=== PATIENT | female | born 1995 | race Caucasian/White ===

== ENCOUNTER 2019-01-18 14:43 | Outpatient (CLI) | payer OTHER, SELFPAY ==
--- NOTE | 2019-01-18 14:31 | DI.RAD_ITS ---
SYMPTOMS/DIAGNOSIS: EVAL LT ANKLE PAIN LEFT ANKLE: When compared with the previous images of 11/10/17, there has been no interval change. Healed fractures of the distal tibia and fibula and orthopedic hardware in place.
== END 2019-01-18 15:03 ==
PROVIDERS: PCP Physician Assistant; Visit Provider Student in an Organized Health Care Education/Training Program
DX: M25.572 Pain in left ankle and joints of left foot (principal); Z87.81 Personal history of (healed) traumatic fracture
CPT/HCPCS: 73610

== ENCOUNTER 2021-10-20 13:24 | Outpatient (CLI) | payer OTHER, SELFPAY ==
--- NOTE | 2021-10-20 11:00 | DI.RAD_ITS ---
Exam(s) XR ANKLE LT COMPLETE EXAM: XR ANKLE LT COMPLETE CLINICAL HISTORY: follow up TECHNIQUE: 2D digital imaging was performed. Three views. COMPARISON: DX LEFT ANKLE COMPLETE from 10/13/2016 CR XR ANKLE LT COMPLETE from 01/18/2019 FINDINGS: BONES: No acute fracture is present. No bony destructive lesion is seen. A fixation plate is again no josue along the distal fibula. Screws of are seen in the medial malleolus. There are 2 mortise screws which are again noted to be fractured. The alignment appears unchanged. There is a mild amount of lucency around the screws in the distal fibula which appears unchanged.. Tiny calcaneal spurs. No t alar dome defect. JOINTS:The ankle mortise is normally aligned. No joint space narrowing or significant periarticular spurring. SOFT TISSUE: Normal. IMPRESSION: No change in appearance of orthopedic hardware with fractures of the mortise screws. DATA REPOSITORY: RADIATION DOSE DELIVERED:
== END 2021-10-20 13:25 | disposition home or self-care (01) ==
LOC: DIORS 13:25
PROVIDERS: PCP Internal Medicine; Referring Provider Internal Medicine; Visit Provider Physician Assistant Surgical
DX: M25.372 Other instability, left ankle (principal); T84.84XA Pain due to internal orthopedic prosthetic devices, implants and grafts, initial encounter; M25.572 Pain in left ankle and joints of left foot
CPT/HCPCS: 73610

== ENCOUNTER 2022-01-26 03:30 | Outpatient (CLI) | payer OTHER, SELFPAY ==
[2022-01-26 13:25] LABS: Source Nasal/Nares
[2022-01-26 19:58] LABS: COVID-19 PCR Negative (Negative)
== END 2022-01-26 03:31 | disposition home or self-care (01) ==
LOC: LBO 03:31
PROVIDERS: PCP Internal Medicine; Visit Provider Student in an Organized Health Care Education/Training Program
DX: Z20.822 Contact with and (suspected) exposure to COVID-19 (principal); Z01.818 Encounter for other preprocedural examination
CPT/HCPCS: 87635

== ENCOUNTER 2022-01-28 06:15 | Day surgery (SDC) | payer OTHER, SELFPAY ==
--- NOTE | 2022-01-28 07:15 | PDOC.DSDIS_ITS ---
Discharge Plan Disposition Patient Disposition: HOME Condition: Good Discharge Details Reason For Visit: Left ankle painful orthopedic hardware Attending Provider: Harpreet Baird Primary Care Provider: Kaleigh Stevens Home Meds and New Rx's Prescriptions: No Action multivitamin Tablet 1 tab PO DAILY diclofenac sodium 1 % gel 4 g topical QID Qty: 100 3RF Rx Instructions: apply to ankle, foot (DME) Custom Foot Orthotics Qty: 2 0RF Dose Instruction: As directed Rx Instructions: Please supply bilateral foot orthotics for pes planus and medial instability. Longitudinal with metatarsal support sertraline 25 mg Tablet 25 mg PO DAILY Discharge Instructions Additional Instructions: Ankle Hardware Removal Discharge Instructions Activity: You may weight bear as tolerated. You should keep the leg elevated as much as possible. You may wiggle your toes and move your hip and knee. You should wear the fracture walking boot when you are up and mobilizing, but may re move it when not and move your ankle as tolerated. Dressings: You should keep the initial dressing on for at least 3 days. After 3 days, you may remove it and get it wet in the shower. You should keep it covered with a light gauze dressing or wrap until follow-up. Medications: - You should take Tylenol and Ibuprofen around the clock for baseline pain. - You have been prescribed a stronger narcotic, Hydrocodone, for breakthrough pain. Follow-up: 2 weeks Discharge Orders Discharge Orders: Discharge Order (Routine); Ordered 01/28/22 Ordered By: Kamilah Stern
== END 2022-01-28 06:16 | disposition home or self-care (01) ==
PROVIDERS: PCP Internal Medicine; Visit Provider Student in an Organized Health Care Education/Training Program
DX: T84.84XA Pain due to internal orthopedic prosthetic devices, implants and grafts, initial encounter (principal); Z53.9 Procedure and treatment not carried out, unspecified reason

== ENCOUNTER 2022-04-08 09:36 | Day surgery (SDC) | payer OTHER, SELFPAY ==
[2022-04-08] VITALS (8 sets, daily range): BP systolic 91–117; BP diastolic 38–76; PULSE 63–100; RESP 15–18; TEMP 36.1–36.4; O2SAT 95–100; BMI 41.2
--- NOTE | 2022-04-08 10:14 | W.ANESPRE ---
General Info Date of Service Date Performed: 04/08/22 Height: 5 ft 3 in Weight: 105.5 kg Body Mass Index (BMI): 41.2 Surgical Procedure: Operation Date: 04/08/22 11:10 Proposed Procedure Side Surgeon p Ankle Hardware Removal Left Harpreet Baird MD Meds Allergies and Home Medications Allergies Allergy/AdvReac Type Severity Reaction Status Date / Time Penicillins Allergy Severe Verified 04/08/22 09:45 bee venom protein (honey bee) Allergy Verified 04/08/22 09:45 Home Medication Medication Instructions Recorded Custom Foot Orthotics #2 ea 03/17/21 diclofenac sodium 1 % topical gel 4 g topical QID left ankle pain, 10/20/21 posterior tibial tendon dysfuncti #100 grams multivitamin 1 tab PO DAILY 10/20/21 sertraline 25 mg tablet 25 mg PO DAILY 01/27/22 Current Visit Medications: Current Medications Generic Name Dose Route Start Last Admin Trade Name Freq PRN Reason Stop Dose Admin Ringer's Solution 1,000 mls @ 80 mls/hr 04/08/22 06:00 IV 05/07/22 23:59 INFUSION DENNY Cefazolin Sodium/Dextrose 2 gm in 50 mls @ 100 mls/hr 04/08/22 06:00 Ancef Duplex IVPB 05/07/22 23:59 PREOP DENNY IV Miscellaneous Supplies 1 each 04/08/22 06:00 Iv Access IV 05/07/22 23:59 DIRECTED DENNY Sodium Chloride 0 ml 04/08/22 06:00 Normal Saline Flush 10 Ml Syr IV 05/07/22 23:59 PRN PRN Sodium Chloride 0 ml 04/08/22 06:00 Normal Saline 10 Ml Vial IJ 05/07/22 23:59 DIRECTED PRN Sterile Water 0 ml 04/08/22 06:00 Water,Injection,Sterile 10 Ml Vial IJ 05/07/22 23:59 DIRECTED PRN PFSH Active Problems Active Problems: Problem Status Onset Code Left ankle instability 11/10/17 M25.372 Pes planus of both feet M21.41, M21.42 Painful orthopaedic hardware T84.84XA Medical History Medical History Comments:: Pt. states she has had an allergy induced stuffy nose in the morning but goes away during the day Surgical History Surgical History History of tonsillectomy and adenoidectomy Hx of section Tobacco Smoking/Tobacco Use Status: Former Tobacco Use Alcohol Alcohol Intake: never Substance Use Substance use: Never Substance use type: does not use Vital Signs and Lab Results Vital Signs Most Recent Vital Signs in EMR: Most Recent Vital Signs Temp Pulse Resp BP Pulse Ox 36.4 C L 100 H 16 117/71 100 04/08/22 09:47 04/08/22 09:47 04/08/22 09:47 04/08/22 09:47 04/08/22 09:47 Lab Results Blood Type / Crossmatch: No Data to Display Complete Blood Count: No Data to Display Complete Metabolic Panel: No Data to Display Liver Function Panel: No Data to Display Coagulation Panel: No Data to Display Cardiac Panel: No Data to Display Arterial Blood Gas: No Data to Display Venous Blood Gas: No Data to Display Pancreas Panel: No Data to Display Thyroid Panel: No Data to Display Infectious Disease: No Data to Display Blood Cultures: No Data to Display Toxicology Panel: No Data to Display Panel: No Data to Display Anesthesia Assessment and Plan Anesthesia History Personal History: No History of Anesthesia Complications Family History: No Family History of Anesthesia Complications Exercise Tolerance Exercise Tolerance: Metabolic Equivalents>4 Cardiac & Pulmonary Exam Cardiac Exam: Normal S1/S2 Heart Sounds Pulmonary Exam: Clear Bilateral Breath Sounds Implantable Cardiac Device Does patient have a Pacemaker or an ICD?: No Airway Exam Known Difficult Airway: No Mallampati Class: 2 Mouth Opening: Normal (> 3cm) Thyromental Distance: Greater than 3 cm Neck Range of Motion: Full ROM Neck Circumference: Normal Teeth Condition: Normal Dentition ASA Classification ASA Score: ASA 3 Emergency Case?: No NPO Status NPO Status: NPO Clears >2 hours, Solids >8 hours Status Status: Not Per Patient Anesthesia Plan Resuscitation Status: Full Code Anesthesia Technique: General Anesthesia Airway Planned: LMA Monitors Used: Standard Monitors
[2022-04-08] MEDS: Lactated Ringers 1,000 ML 80 ML IV (10:29)
--- NOTE | 2022-04-08 11:02 | HPE_ITS ---
Assessment and Plan Assessment and plan (1) Painful orthopaedic hardware: Status: Acute Assessment and plan: Yadira is a 26-year-old who has painful hardware about her left ankle. Please see the previous office note for complete detailed history. She is here today for hardware removal. I discussed this procedure with her in detail. I discussed the risk of the procedure to include bleeding, infection, pain, stiffness, damage nerves and vessels, blood clot. Despite these risk, she elects to proceed. History of Present Illness History of Present Illness Chief Complaint: Painful left ankle hardware Narrative: Yadira is a 26-year-old who previously had an ankle fracture on the left side. This was fixed at [facility] with internal fixation. She has had some persistent pain about the left ankle after the fracture has healed. He has prominent screws as well as 2 broken syndesmotic screws. Pain is both medial and lateral. Please see the previous office note for complete detailed history but the plan was for removal of hardware. She is here for that today. She has no change in her health. No chest pain or shortness of breath. Review of Systems All systems reviewed & are unremarkable except as noted in HPI and below PFSH All Active Problems Left ankle instability (Acute 11/10/17) Pes planus of both feet (Acute) Painful orthopaedic hardware (Acute) Surgical History History of tonsillectomy and adenoidectomy Hx of section Social History Smoking/Tobacco Use Status: Former Tobacco Use Quit Date: 07/05/19 Smoking risk assessment performed?: Yes Alcohol Intake: never Drug use: Never Substance use type: does not use Do you feel safe at home: Yes Do you feel safe in your relationship?: Yes Meds Allergies and Home Medications Allergies Allergy/AdvReac Type Severity Reaction Status Date / Time Penicillins Allergy Severe Verified 04/08/22 09:45 bee venom protein (honey bee) Allergy Verified 04/08/22 09:45 Home Medications Medication Instructions Recorded Confirmed Type Custom Foot Orthotics #2 ea 03/17/21 04/07/22 Rx diclofenac sodium 1 % topical gel 4 g topical QID left ankle pain, 10/20/21 04/08/22 Rx posterior tibial tendon dysfuncti #100 grams multivitamin 1 tab PO DAILY 10/20/21 04/08/22 History sertraline 25 mg tablet 25 mg PO DAILY 01/27/22 04/08/22 History Exam Resp Effort & Inspection: normal respiratory effort Auscultation: clear to auscultation bilaterally Cardio Rate: regular rate Rhythm: regular rhythm Results Last Vital Signs Temp 36.4 C L 04/08/22 09:47 Pulse 100 H 04/08/22 09:47 Resp 16 04/08/22 09:47 BP 117/71 04/08/22 09:47 Pulse Ox 100 04/08/22 09:47
[2022-04-08] MEDS: ceFAZolin 2 GM/50 ML BAG IVPB (11:35)
--- NOTE | 2022-04-08 11:43 | W.PM.DSUDISC ---
Discharge Plan Disposition Patient Disposition: HOME Condition: Good Discharge Details Reason For Visit: Hardware removal L ankle Attending Provider: Harpreet Baird Primary Care Provider: Kaleigh Stevens Home Meds and New Rx's Prescriptions: New acetaminophen 500 mg tablet 1,000 mg PO TID Qty: 90 0RF hydrocodone-acetaminophen 5-325 mg tablet 1 tab PO Q6H PRN (Reason: pain) Qty: 6 0RF ibuprofen 600 mg tablet 600 mg PO TID PRN (Reason: pain) Qty: 90 0RF Continued multivitamin Tablet 1 tab PO DAILY diclofenac sodium 1 % gel 4 g topical QID Qty: 100 3RF Rx Instructions: apply to ankle, foot (DME) Custom Foot Orthotics Qty: 2 0RF Dose Instruction: As directed Rx Instructions: Please supply bilateral foot orthotics for pes planus and medial instability. Longitudinal with metatarsal support sertraline 25 mg Tablet 25 mg PO DAILY Discharge Instructions Additional Instructions: Ankle Hardware Removal Discharge Instructions Activity: You may weight bear as tolerated. You should keep the leg elevated as much as possible. You may wiggle your toes and move your hip and knee. You should wear the fracture walking boot when you are up and mobilizing, but may remove it when not and move your ankle as tolerated. Dressings: A Mepilex dressing was placed over your wound, and you should keep this on for at least 7 days. You may cover it and shower after 3 days. You may keep the Mepilex dressing on until your next follow-up as well. You should wear the fracture walking boot for ambulation, but otherwise may take it off. Medications: - You should take Tylenol and Ibuprofen around the clock for baseline pain. - You have been prescribed a stronger narcotic, Hydrocodone, for breakthrough pain. Follow-up: 2 weeks Referrals: Harpreet Baird MD [ [facility] STAFF PHYSICIAN] - Equipment/Supplies: Partial Weight Bearing Crutches Activity:: Activity as Tolerated Remove Dressings/Wound Care:: 72 hours Shower/Bathe:: 72 hours Diet:: As Tolerated Discharge Orders Discharge Orders: Discharge Order (Routine); Ordered 04/08/22 Ordered By: Santos Iverson DS: Diagnosis Discharge Diagnosis (1) Painful orthopaedic hardware: Status: Acute
[2022-04-08] MEDS: Bupivacaine 0.5% Pres-Free W/EPI 30 ML VIAL (12:03)
[2022-04-08] MEDS: fentaNYL 100 MCG/2 ML VIAL IVP (12:50)
[2022-04-08] MEDS: HYDROcodone 5/Acetaminophen 325 TAB PO (13:42)
--- NOTE | 2022-04-08 14:07 | W.ANESPOSTOP ---
Postoperative Evaluation Date, Time and Location Date Performed: 04/08/22 Time Performed: 14:07 Patient Location: Day Surgery Unit Vital Signs Most Recent Imported Vital Signs: Most Recent Vital Signs Temp Pulse Resp BP Pulse Ox 36.3 C L 75 16 108/76 95 04/08/22 13:48 04/08/22 13:48 04/08/22 13:48 04/08/22 13:48 04/08/22 13:48 Pain Score Most Recent Pain Score: Most Recent Pain Score Pain Level 4 04/08/22 13:48 Assessment Mental Status: Awake (Alert & Oriented to Patient Baseline) Airway and Respiratory Function: Patent airway with normal (patient baseline) respiratory exam Cardiovascular Function: Hemodynamically Stable Hydration Status: Adequately Hydrated Nausea & Vomiting: No Nausea or Vomiting Pain: Pt. Denies Any Pain Peripheral Nerve Block: Patient did not receive a nerve block
--- NOTE | 2022-04-08 20:28 | ROE_ITS ---
Date of service: 04/08/22 Time of Service: 12:00 Operative Note Operative Note DATE OF PROCEDURE: 04/08/22 PRE-OP DIAGNOSIS: Painful orthopaedic hardware - left ankle POST-OP DIAGNOSIS: same PROCEDURE: Removal of hardware from left ankle, lateral and medial SURGEON: Harpreet Baird ANESTHESIA TYPE: General LMA/ETT Refer to Anesthesia Record ESTIMATED BLOOD LOSS: 10 PATHOLOGY: none sent TOURNIQUET TIME: 0 COMPLICATIONS: None Patient was transported to: PACU Patient's condition: stable Indications: Starr is a 26-year-old female who had a previous ankle fracture treated with screws and plates some years ago. I seen her previously for painful hardware as well as a painful ankle. She had broken syndesmotic screws and pain overlying the plate and screws both medially and laterally. Given the persistence of her symptoms I recommended hardware removal. I discussed the technical details of the surgery. I reviewed the risks such as bleeding, infection, pain, stiffness, damage to nerves and vessels, blood clot. Despite these risks, she agreed to proceed. Findings: Screws and plates removed without difficulty. The broken portion of the syndesmotic screw, inside the tibia, was left Procedure Description: Starr was greeted in the preoperative area. Consent was previously reviewed and signed. Once in the operating room, anesthesia was administered. The patient was transferred to the fracture table in the supine position. She was positioned in the supine position with the operative side placed onto a bone foam ramp. All bony prominences were well padded. Arms were placed out to the side, padded, and secured. Prophylactic antibiotics, Cefazolin 2 grams, was given for prophylactic antibiotics. A timeout was performed for safe surgery. The left leg was prepped with Chloraprep. The leg was draped with a stockinette and extremity drape. The previous incision were marked on the skin. Surgical sites were injected with 0.5% bupivacaine with epinephrine. Starting with the lateral side of the ankle I performed an incision overlying the previous incision. Dissection was carried down through the skin. Blunt dissection was carried down to the interval between anterior lateral compartments over the lateral fibula where the plate was visible. Using dhillon elevator continue to dissect over the plate. The plate was fully identified staying on the plate using electrocautery and a dhillon elevator. Screws were then removed without difficulty. The broken portion of the syndesmotic screws were left inside the tibia as planned. There was some bony overgrowth approximately which had to be excised with an osteotome. The plate was then removed and the screw holes were debrided. The wound was thoroughly irrigated. The fascia was reapproximated with 0 Vicryl. The deep dermal layer was closed with a 2-0 Vicryl. The skin was then closed with a running 4-0 Monocryl which was reinforced with skin affix skin glue. Attention was then turned to the medial side. Using the distal half of the i ncision I incised sharply. Direct palpation of the medial malleolus was utilized to determine the location of the screws. There is no defect in the deltoid ligament. There is no significant signs of atrophy. Using a wire from the 4.0 cannulated screw system I was able to find the screw percutaneously through the deltoid fascia and the deltoid ligament. I then incised the deltoid ligament and remove the screw without difficulty. The more posterior screw was removed in similar fashion except that it was difficult to remove fully because the screw head was stripped. As I encountered resistance with the screw threads coming out the end of the medial malleolus had to use a vice armhole baster jumpbasting to turn the screw and complete his removal. A single suture was placed into the small vertical defect of the deltoid ligament formed by removing the screw. The wound was thoroughly irrigated. The deep tissues of the medial side ankle reapproximated the 2-0 Vicryl followed by a running, subcuticular 4-0 Monocryl, reinforced with skin glue. Mepilex dressings were placed on each wound. The leg was wrapped with Girish wrap and placed into a fracture walker boot. At the end of the case, all counts were correct. Starr tolerated the procedure well without known complication and was taken to the PACU for recovery.
== END 2022-04-08 14:25 | disposition home or self-care (01) ==
PROVIDERS: PCP Internal Medicine; Visit Provider Student in an Organized Health Care Education/Training Program
PROC: (CPT 20680; principal; 2022-04-08 11:00)
DX: T84.84XA Pain due to internal orthopedic prosthetic devices, implants and grafts, initial encounter (principal)
CPT/HCPCS: 20680; 81025; J0690; J1100; J1885; J2250; J2405; J2704; J3010

== ENCOUNTER 2022-05-21 11:40 | Outpatient (CLI) | payer OTHER, SELFPAY ==
--- NOTE | 2022-05-21 11:26 | DI.RAD_ITS ---
Exam(s) XR ANKLE LT COMPLETE EXAM: XR ANKLE LT COMPLETE CLINICAL HISTORY: pain TECHNIQUE: COMPARISON: CR XR ANKLE LT COMPLETE from 10/20/2021 FINDINGS: Three views were obtained. Previous described plate and screw fixation of the fibula and of the medi al malleolus have been removed since prior examination of October 20. There are screw fragments in p lace in tibia from fractured tibial fibular fixation screws. The ankle mortise appears well maintain ed at this time. IMPRESSION: RADIATION DOSE DELIVERED: Total DLP
== END 2022-05-21 11:41 | disposition home or self-care (01) ==
LOC: DIORS 11:41
PROVIDERS: PCP Internal Medicine; Referring Provider Internal Medicine; Visit Provider Physician Assistant Surgical
DX: T84.84XA Pain due to internal orthopedic prosthetic devices, implants and grafts, initial encounter (principal); X58.XXXA Exposure to other specified factors, initial encounter
CPT/HCPCS: 73610

== ENCOUNTER 2023-05-04 13:11 | Outpatient (CLI) | payer OTHER, SELFPAY ==
--- NOTE | 2023-05-03 14:30 | DI.RAD_ITS ---
Exam(s) XR ANKLE LT COMPLETE EXAM: XR ANKLE LT COMPLETE CLINICAL HISTORY: continued left ankle pain TECHNIQUE: 2D digital imaging was performed of the left ankle. Four images were obtained. AP, late ral and oblique views were obtained. COMPARISON: CR XR ANKLE LT COMPLETE from 05/21/2022 FINDINGS: BONES: No acute fracture is present. No bony destructive lesion is seen. The remains of 2 fractured s crews are again seen in the distal tibia. JOINTS:The ankle mortise is normally aligned. SOFT TISSUE: Normal. IMPRESSION: No significant change in appearance of the left ankle.. No acute abnormality. DATA REPOSITORY: RADIATION DOSE DELIVERED:
== END 2023-05-04 13:12 | disposition home or self-care (01) ==
LOC: DIORS 13:12
PROVIDERS: PCP Internal Medicine; Visit Provider Student in an Organized Health Care Education/Training Program
DX: M25.372 Other instability, left ankle (principal); T84.84XA Pain due to internal orthopedic prosthetic devices, implants and grafts, initial encounter
CPT/HCPCS: 73610